=== PATIENT | female | born 1985 | race Caucasian/White ===

== ENCOUNTER → 2017-09-16 | Outpatient (CLI) | payer OTHER ==
[~2017-09-16] MED LIST: AMOXICILLIN 50500 MG; CLARITIN10 MG PO; COLACE100 MG PO; DIFLUCAN150 MG PO; DOXYCYCLINE 10100 MG PO; FLEXERIL PO; GABAPENTIN 100100 MG PO; HYDROCODONE-AP1 EAC6 PO; HYDROCODONE-APA1 TA1 PO; MEDROLDOSEPACK PO; MOBIC15 MG PO; NAPROSYN500 MG PO; NUVIGIL150 MG PO; OMEPRAZOLE40 MG PO; PERCOCET; PROAIR HFA8.5 GM INH; PROPRANOLOL 1010 MG PO; SPIRONOLACTONE100 M1 PO; VENLAFAXIN75 MG/1 T2 PO; VITAMIN B-12500 MCG PO; VITAMIN D1000 UNI1 PO; ZANAFLEX4 MG PO; ZANTAC 150MG T150 MG PO; ZOFRAN ODT4 MG PO
== END ==
LOC: M.RAD 15:13
DX: M48.07 Spinal stenosis, lumbosacral region (principal); E28.2 Polycystic ovarian syndrome; G47.419 Narcolepsy without cataplexy

== ENCOUNTER → 2017-09-23 | Outpatient (CLI) | payer OTHER | LOC: M.MRI 17:02 | DX: M51.36 Other intervertebral disc degeneration, lumbar region (principal); M51.27 Other intervertebral disc displacement, lumbosacral region ==

== ENCOUNTER → 2017-10-16 | Outpatient (CLI) | payer OTHER ==
--- NOTE | 2017-11-12 13:42 | PAINCON ---
[address] [address] PAIN MANAGEMENT CONSULTATION Name: MONY VARGAS Room: [facility] ROSHNI DcMattie#: [id number] Admission: 10/16/17 Attend Phys: Thiago Garcia MD Discharge: Date of : 81 Report #: [id number] THIS REPORT FOR: //name// CC: Sudeep Garcia DATE OF SERVICE: 10/16/2017 CHIEF COMPLAINT: Low back pain into the upper legs with radiation and sharp pain in the upper legs. HISTORY OF PRESENT ILLNESS: The patient is a 32-year-old female who has been referred to the pain clinic for evaluation. She has been experiencing pain and discomfort, which has been problematic since August of this year. It involves her upper back, posterior back, and buttocks areas with pain radiating down to the left calf. Describes it as burning and stabbing discomfort with discomfort that she rates as a 10/10 at this juncture. Notes that the pain is worse when she is standing as well as with sitting. Lying down somewhat improves her discomfort. She describes it as continuous, steady, constant, shooting, burning, stabbing, tender, and throbbing. She denies any back pain. She has tried nonsteroidal anti-inflammatory medications. She is also using Flexeril 3 times a day. She has tried tizanidine. She has used Naprosyn 500 mg t.i.d. She denies any bowel or bladder dysfunction. Pain has worsened over the last 6 weeks. Feels that it impacts significantly on all activities of daily living. 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 She has continued to have back issues since that time. ALLERGIES: No known drug allergies. MEDICATIONS: Nuvigil 150 mg daily, vitamin D 1000 units, vitamin B12 500 mcg, Flexeril 10 mg t.i.d. for spasms. Naprosyn 500 mg t.i.d., omeprazole 40 mg daily, Zanaflex 150 mg daily, spironolactone 100 mg, Zanaflex 40 mg t.i.d., and Effexor 75 mg. PAST MEDICAL HISTORY: Gallbladder disease and emotional problems. PAST SURGICAL HISTORY: Cholecystectomy in 2008, tonsillectomy in 08/2015, and nose reconstruction in 08/2015. SOCIAL HISTORY: She works as a college registrar. She is working at this juncture. REVIEW OF SYSTEMS: Questionnaire in the chart indicate generally good health. A 12-point review noted, fatigue, weakness, wears glasses, ringing in the ears, chronic sinus problems, mouth sores, shortness of breath when lying flat, [place] [address] PAIN MANAGEMENT CONSULTATION Name: MONY VARGAS Room: [facility]#: [id number] Admission: 10/16/17 Attend Phys: Thiago Garcia MD Discharge: Date of : 83 Report #: [id number] swelling of feet, ankles, hands, shortness of breath, nausea and vomiting, painful bowel movements, rectal bleeding, blood in stool, abdominal pain, cold intolerance, back pain, difficulty walking, lightheadedness, dizziness, depression. LABORATORY DATA: MRI of the lumbar spine dated 09/23/2017: 1. L3-L4 unremarkable. There is no disk bulge, protrusion, or stenosis. The facet joints are unremarkable. 2. L4-L5, loss of disk space height and signal present. 3. L5-S1 loss of disk space height and disk bulging present. Small central disk protrusion was present without significant spinal canal compression. AP diameter measurement is 13 mm. PAIN CLINIC ASSESSMENT: 1. The patient is not being treated for osteoarthritis or rheumatoid arthritis. 2. Height 5 feet 4 inches, weight 249 pounds, BMI is 43. 3. Vital signs: Blood pressure 133/87, heart rate 91, respiratory rate 16, room air saturation 97%, temperature 98.4. 4. Pain intensity is judged as 8/10. 5. Fall risk. The patient has not fallen in the last 3 months. The patient did relate that approximately 15 years ago while a cheerleader. She did fall, hurt her back and has had issues since that time. 6. Blood thinner. The patient is not on a blood thinner. 7. History of hypertension. The patient is not being treated for hypertension. 8. Opioid therapy. The patient is not on opioid therapy greater than 6 weeks. 9. Risk assessment tool. 10. Functional assessment tool. The patient's score 65/76 showing severe impact of the pain upon her activities of daily living. 11. Recreational drug use. The patient denies use of recreational drugs. 12. Use of tobacco. The patient denies use of alcoholic beverages. 13. Alcohol: The patient denies use of alcoholic beverages other than once monthly. PHYSICAL EXAMINATION: GENERAL: The patient is a well-developed, well-nourished female. Somewhat obese. She appears her stated age. She is alert and oriented x 3. Affect is appropriate. Speech is fluent. HEENT: Normocephalic, atraumatic. Extraocular eye muscles intact. Sclerae nonicteric. Mucous membranes are moist. Hearing is within normal limits. NECK: Without adenopathy, JVD or bruits. HEART: Regular rate, S1, S2. LUNGS: Clear to auscultation without rhonchi or rales. ABDOMEN: Protuberant. MUSCULOSKELETAL: Upper extremity muscle strength is judged to be a 5/5. Without significant scoliosis, lordosis, or kyphosis. Left and right lateral bending causes increased pain and discomfort in the waist [place] [address] PAIN MANAGEMENT CONSULTATION Name: MONY VARGAS Room: [facility]#: [id number] Admission: 10/16/17 Attend Phys: Thiago Garcia MD Discharge: Date of : 81 Report #: [id number] Left and right lateral rotation cause increased pain and discomfort in the back with pain radiating down to the posterior portion of her buttocks bilaterally. Forward bending to 45 degrees cause some increased pain and discomfort in low back area. Lumbar extension caused some increased low back pain and discomfort. Reflexes are +2 for the knees and ankles bilaterally. The patient has a burning and stabbing sensation in the lumbar area near the iliac crest as well as some pain and burning sensation down into the buttocks and posterior portion of her thighs bilaterally. ASSESSMENT: 1. Low back pain with pain radiating down into the upper portions of the posterior buttocks and posterior thigh. 2. Obesity. 3. Myofascial pain. 4. Gastroesophageal reflux disease. 5. Anxiety. 6. Narcolepsy. RECOMMENDATIONS: We discussed treatment options with the patient. At this juncture, we will try a conservative approach. We will have her try a Medrol Dosepak. A script for this medication has been written. We have discussed the use and reason for its use. We will also use meloxicam 15 mg 1 p.o. every day. She will note the effects of this on her stomach. Hopefully, she finds that this improved things. We may consider trigger point injection to some of the localized areas in the lower portion of her back or possibility of an epidural steroid injection to help with the pain and discomfort which she is experiencing in lower portion of her back, which radiates down the posterior portion of her legs. We would like to thank you for letting us participate in her care. We hope she continues to improve. <ELECTRONICALLY SIGNED> By: Thiago Garcia MD 11/12/17 1342 1241 0318N. Mt Garcia MD /nt
== END ==
LOC: M.PC 04:02
DX: M54.5 Low back pain (principal); M79.652 Pain in left thigh; M79.651 Pain in right thigh; M25.552 Pain in left hip; M25.551 Pain in right hip; K21.9 Gastro-esophageal reflux disease without esophagitis; G47.419 Narcolepsy without cataplexy; F41.9 Anxiety disorder, unspecified; M79.1 Myalgia; E66.9 Obesity, unspecified

== ENCOUNTER → 2017-10-28 | Outpatient (CLI) | payer OTHER ==
--- NOTE | 2017-11-12 13:59 | PAINCON ---
[address] [address] PAIN MANAGEMENT CONSULTATION Name: MONY VARGAS Room: [facility] Tricia#: [id number] Admission: 10/28/17 Attend Phys: Thiago Garcia MD Discharge: Date of : 81 Report #: [id number] THIS REPORT FOR: //name// CC: Sudeep Garcia DATE OF SERVICE: 10/28/2017 FOLLOWUP COMPLAINT: Here for an epidural steroid injection. FOLLOWUP HISTORY: The patient is a 32-year-old female who has been followed in the pain clinic because of pain and discomfort, which is radiating down into her legs. She noticed this pain, which has been problematic since August. It involves her upper back, posterior back, buttocks and has pain radiating down into her left calf. She describes it as a burning sensation, stabbing sensation, and discomfort which is risen to the level of 10/10 at times. Pain is worse when she is standing as well as she notes some discomfort with sitting. She describes it as problematic with activities, walking, sitting, standing, going from a sitting to a standing position, lifting, and bending. Denies any bowel or bladder dysfunction. Notes that the pain has continued to worsen over the last 6 weeks and has returned today for treatment. ALLERGIES: No known drug allergies. MEDICATIONS: Nuvigil 150 mg daily, vitamin D 1000 units, vitamin B12 at 500 mcg, Flexeril 10 mg t.i.d. for spasms, Naprosyn 500 mg t.i.d., omeprazole 40 mg daily, Zanaflex 150 mg daily, spironolactone 100 mg, Zanaflex 40 mg t.i.d., Effexor 75 mg. PAIN CLINIC ASSESSMENT: 1. The patient has not been treated for osteoarthritis or rheumatoid arthritis. 2. Height 5 feet 4 inches, weight 252 pounds, BMI is 43. 3. Vital signs: Blood pressure is 125/80, heart rate 96, respiratory rate 16, room air saturation 99%, temperature 98.4. 4. Pain intensity 01/09. 5. Fall risk. The patient has not fallen in the last 3 months. 6. Blood thinner. The patient is not on a blood thinning agent. 7. Hypertension. The patient is not being treated for hypertension. 8. Opioid risk greater than 6 weeks. The patient is not on an opioid therapy. 9. Functional assessment tool, the patient's score 65/76 indicating significant problems with activities of daily living secondary to the impact of pain on her life. 10. Recreational drug use. Denies use of recreational drugs. 11. Tobacco: The patient denies use of tobacco. 12. Alcohol: The patient denies use of alcoholic beverages other [place] [address] PAIN MANAGEMENT CONSULTATION Name: MONY VARGAS [id number] Admission: 10/28/17 Attend Phys: Thiago Garcia MD Discharge: Date of : 81 Report #: [id number] PHYSICAL EXAMINATION: GENERAL: The patient is a well-developed white female. She appears her stated age. She is somewhat obese. She appears to be alert and oriented x 3. Affect is appropriate. Speech is fluent. HEENT: Normocephalic, atraumatic. Extraocular eye muscles are intact. Sclerae is nonicteric. Mucous membranes are moist. Hearing is within normal limits. NECK: Without JVD, adenopathy, or bruits. HEART: Regular rate, normal S1, S2. LUNGS: Clear to auscultation without rhonchi or rales. ABDOMEN: Protuberant. MUSCULOSKELETAL: Upper extremity strength is judged to be 5/5 without significant scoliosis, kyphosis, or lordosis in the musculature. Left and right lateral bending, some increased pain and discomfort in the low back and the waist area. The patient has some pain and discomfort radiating down into the low back and into her buttocks, thighs with burning and stabbing sensation. ASSESSMENT: 1. Low back pain with pain radiating down to the upper portion and posterior portion of her buttocks and thighs. 2. Obesity. 3. Myofascial pain. 4. Gastroesophageal reflux. 5. Anxiety. 6. Narcolepsy. RECOMMENDATIONS: We discussed treatment options with the patient. We have tried a conservative approach. The patient was given a Medrol Dosepak to take in the interim. She did note some improvement in her pain, but still has pain and discomfort, which is still problematic. She has returned today and would like to proceed with an epidural steroid injection given that she is having pain, which is radiating down to her thighs, buttocks, and into her leg with burning. She states that the pain was somewhat improved with use of the Medrol Dosepak, but still is problematic. We will proceed with a lumbar epidural steroid injection. Risks and benefits of the procedure were again reviewed with the patient. They include but are not limited to infection, increased muscle soreness, headache, bleeding, worsening of pain, spinal headache, and paresis. PROCEDURE NOTE: The patient was assisted in getting on the fluoroscopy table. She was placed in the prone position. Her back was sterilely prepped with a Betadine solution. Fluoroscopy was used to identify the L4-L5 interspace. This area had been sterilely prepped with Betadine and infiltrated with 0.25% bupivacaine. Total of 80 mg Depo-Medrol, 40 mg triamcinolone and 2 mL of 0.25% bupivacaine was injected. The patient tolerated the procedure well. She did get a little bit hot and felt like she was going to be nauseated, but did not. The bed was then placed in more of a [place] [address] PAIN MANAGEMENT CONSULTATION Name: MONY VARGAS Room: [facility]#: [id number] Admission: 10/28/17 Attend Phys: Thiago Garcia MD Discharge: Date of : 81 Report #: [id number] wellbeing quickly returned. She then was taken to the recovery room. A Band-Aid was placed in the area of the injection. Anterior, posterior as well as lateral viewing was used to identify the appropriate placement. She remained in the pain clinic for an appropriate amount of time. She will follow up in the future as needed. She will take meloxicam and continue to note its effect on her GI tract. We would like to thank you for letting us participate in her care. We hope she continues to improve. <ELECTRONICALLY SIGNED> By: Thiago Garcia MD 11/12/17 1359 1550 2129N. Mt Garcia MD /[place]
== END | disposition home or self-care (01) ==
LOC: M.PC 00:10
DX: M54.16 Radiculopathy, lumbar region (principal); M79.1 Myalgia; K21.9 Gastro-esophageal reflux disease without esophagitis; G47.419 Narcolepsy without cataplexy; F41.9 Anxiety disorder, unspecified; E66.09 Other obesity due to excess calories; Z68.41 Body mass index [BMI] 40.0-44.9, adult; Z79.899 Other long term (current) drug therapy; Z98.890 Other specified postprocedural states

== ENCOUNTER 2017-11-13 16:27 | Emergency (ER) | payer OTHER ==
[~2017-11-13] VITALS: Ht 162.6 cm; Wt 113.4 kg
[~2017-11-13 16:27] MED LIST changes: -GABAPENTIN 100100 MG PO; -PROAIR HFA8.5 GM INH; -PROPRANOLOL 1010 MG PO
[2017-11-13 17:40] LABS: ABSOLUTE BASOPHILS 0.1 thou/uL (0.0-0.2); ABSOLUTE EOSINOPHILS 0.2 thou/uL (0.0-0.7); ABSOLUTE LYMPHOCYTES 3.2 thou/uL (0.8-5.3); ABSOLUTE MONOCYTES 0.9 thou/uL (0.0-1.2); ABSOLUTE NEUTROPHILS 10.5 thou/uL (1.6-8.1); BASOPHILS 0.5 %; EOSINOPHILS 1.6 %; HEMATOCRIT 42.9 % (37.0-47.0); HEMOGLOBIN 14.6 gm/dL (12.0-15.0); LYMPHOCYTES 21.2 %; MCH 30.5 pg (26.0-34.0); MCHC 34.1 g/dL (28.0-37.0); MCV 89.5 fL (80.0-100.0); MPV 7.6 fl. (7.2-11.1); NUCLEATED RBCS 0 /100WBC; PLATELET COUNT* 449 thou/uL (150-400); POLYS 70.7 %; RBC 4.79 mil/uL (4.20-5.00); RDW-CV 12.7 % (10.5-14.5); WBC 14.9 thou/uL (4.0-11.0)
[2017-11-13 17:43] LABS: ANION GAP 9 mmol/L (7-16); BUN 17 mg/dL (7-18); CALCIUM 9.3 mg/dL (8.5-10.1); CHLORIDE 100 mmol/L (98-107); CO2 27 mmol/L (21-32); CREATININE 0.9 mg/dL (0.6-1.3); GLUCOSE 97 mg/dL (70-99); POTASSIUM 3.6 mmol/L (3.5-5.1); SODIUM 136 mmol/L (136-145)
[2017-11-13 17:50] LABS: ALBUMIN 3.9 g/dL (3.4-5.0); ALKALINE PHOSPHATASE 59 U/L (46-116); SGOT 17 U/L (15-37); SGPT 30 U/L (30-65); TOTAL BILIRUBIN 0.4 mg/dL (<0.1-1.0); TOTAL PROTEIN 8.2 g/dL (6.4-8.2); TROPONIN-I LEVEL <0.06 ng/mL (<0.06)
[2017-11-13] MEDS ORDERED: PROAIR HFA8.5 GM INH (19:13)
[2017-11-13 19:24] VITALS: BP 130/74
--- NOTE | 2017-11-14 12:05 | EKG ---
[place] [address] ELECTROCARDIOGRAM REPORT Name: MONY VARGAS [id number] Admission: 11/13/17 Attend Phys: Discharge: 11/13/17 Date of : 81 Report #: [id number] THIS REPORT FOR: //name// [facility] ED Test Date: 2017-11-13 Test Time: 18:05:28 Pat Name: MONY VARGAS Department: Room: Gender: F Telephonic Nurse Case Manager: : 1985 Requested By: Eloisa Morrow Order Number: [id number] MD: Sudeep Breen Measurements Intervals Maceo Rate: 112 P: 27 NV: 125 QRS: 28 QRSD: 89 T: 0 QT: 339 QTc: 463 Interpretive Statements Sinus tachycardia poor r wave progression Low voltage, precordial leads No previous ECG available for comparison Electronically Signed On 11-14-2017 12:05:21 CDT by Sudeep Breen [email or web address] <ELECTRONICALLY SIGNED> By: Sudeep Breen MD, [facility] 11/14/17 1205 1805 1805 Sudeep Breen MD, FACC /EPI
[2017-11-27] MEDS ORDERED: GABAPENTIN 100100 MG PO (09:03)
[2017-11-27] MEDS ORDERED: PROPRANOLOL 1010 MG PO (09:37)
[2017-12-25] MEDS ORDERED: MEDROLDOSEPACK PO (11:32)
[2017-12-25] MEDS ORDERED: MOBIC15 MG PO (11:32)
[2017-12-25] MEDS ORDERED: PROPRANOLOL 1010 MG PO (11:32)
== END 2017-11-13 19:24 | disposition home or self-care (01) ==
LOC: M.ERS 16:27
PROVIDERS: Nurse Practitioner Family
DX: R06.00 Dyspnea, unspecified (principal); R06.02 Shortness of breath; K21.9 Gastro-esophageal reflux disease without esophagitis; F41.9 Anxiety disorder, unspecified; Z90.49 Acquired absence of other specified parts of digestive tract

== ENCOUNTER → 2017-11-27 | Outpatient (CLI) | payer OTHER ==
[~2017-11-27] MED LIST changes: +GABAPENTIN 100100 MG PO; +PROAIR HFA8.5 GM INH; +PROPRANOLOL 1010 MG PO
--- NOTE | 2017-11-27 15:18 | PAINCON ---
[address] [address] PAIN MANAGEMENT CONSULTATION Name: MONY VARGAS Room: [facility] Tricia#: [id number] Admission: 11/27/17 Attend Phys: Thiago Garcia MD Discharge: Date of : 81 Report #: [id number] THIS REPORT FOR: //name// CC: Sudeep Garcia DATE OF SERVICE: 11/27/2017 FOLLOWUP COMPLAINT: Here for another epidural injection. FOLLOWUP HISTORY: The patient is a 32-year-old female who has been followed in the pain clinic because of pain and discomfort. She has been experiencing pain which is radiating down into her legs. She underwent an epidural steroid injection at the last visit. She noticed that her pain is about 70% better. She did note that her heart rate seemed to be elevated for about a week. Denies any similar problems like this in the past. Has no problems with her heart. She has had no heart conditions. Does take Nuvigil for narcolepsy type symptoms. She feels that the Meloxicam is working reasonably well. Has had no problem with the gabapentin. Rates her pain as a 1/10 at this juncture. She is still having some pain and discomfort with pain down into her legs bilaterally to the level of her knee. She feels that another injection would be helpful. She is contemplating going on ocean cruise. She would like to undergo another injection to lessen the chance that trip will be problematic. She denies any problems with her stomach as a result of the Meloxicam. Notes that her pain is exacerbated somewhat with activity, but overall things are going better. ALLERGIES: No known drug allergies. CURRENT MEDICATIONS: Nuvigil 150 mg daily, vitamin D 1000 units, vitamin B12 at 500 mcg, Flexeril 10 mg t.i.d. for spasms, Naprosyn has been changed and Meloxicam instituted 15 mg 1 p.o. daily, omeprazole 40 mg daily, Zanaflex 150 mg daily, spironolactone 100 mg, Zanaflex 4 mg p.o. t.i.d., Effexor 75 mg. PAIN CLINIC ASSESSMENT: 1. The patient has not been treated for osteoarthritis or rheumatoid arthritis. 2. Height 5 feet 4 inches, weight 253 pounds, BMI is 43.7. 3. Vital signs: Blood pressure is 144/87, heart rate 97, respiratory rate 16, room air saturation is 96 and temperature 98.3. 4. Pain intensity down from 8 to 1, but still episodic. 5. Fall risk. The patient has not fallen in the last 3 months. 6. Blood thinner. The patient is not on a blood thinning medication. 7. Hypertension. The patient has not been treated for hypertension. 8. Opioids risk. The patient is not on opioid medications. 9. Functional assessment tool. The patient's score 65/76 which indicated significant problems with her activities of daily living, which is improved now since [place] [address] PAIN MANAGEMENT CONSULTATION Name: MONY VARGAS [id number] Admission: 11/27/17 Attend Phys: Thiago Garcia MD Discharge: Date of : 81 Report #: [id number] 10. Recreational drug use. The patient denies use of recreational drugs. 11. Tobacco: The patient denies use of tobacco. 12. Alcohol: The patient denies use of alcoholic beverages other than a monthly basis. PHYSICAL EXAMINATION: GENERAL: The patient is a well-developed white female. Somewhat obese. She appears her stated age. She is alert and oriented x 3. Affect is appropriate. Speech is fluent. HEAD, EYES, EARS, NOSE, AND THROAT: Normocephalic, atraumatic. Extraocular eye muscles intact. Sclerae nonicteric. Mucous membranes moist. Hearing is within normal limits. NECK: Without JVD, adenopathy, or bruits. HEART: Regular rate, normal S1, S2. LUNGS: Clear to auscultation without rhonchi or rales. ABDOMEN: Protuberant. MUSCULOSKELETAL: Without significant scoliosis, kyphosis or lordosis. The patient has pain and discomfort in the left as well as the right leg with pain radiating down to the L4-L5 distribution. Has noted less pain in the buttocks, less burning, less stabbing sensation since the last visit. ASSESSMENT: 1. Low back pain with pain radiating down to the lower portions of her buttocks and thigh, improved after epidural steroid injection. 2. Obesity. 3. Myofascial pain. 4. Gastroesophageal reflux. 5. Anxiety. 6. Narcolepsy. 7. Elevated heart rate to 106 for about a week. The patient's baseline heart rate 97. RECOMMENDATIONS: We discussed treatment options with the patient. We will proceed today with another epidural steroid injection. Risks and benefits of the procedure were again reviewed. They include but are not limited to infection, increased muscle soreness, headache, bleeding, worsening of pain, paralysis, spinal headache. The patient elects to proceed. PROCEDURE NOTE: The patient was taken to the procedure area. She was assisted in getting on the table. Her back was sterilely prepped. Fluoroscopy using anterior, posterior as well as lateral viewing were used to identify the L5/L4 area. This area was sterilely prepped. 0.25% bupivacaine was injected. A midline approach using a 17-gauge Tuohy 5 inch needle was provided. A total of 80 mg Depo-Medrol, 40 mg of triamcinolone and 2 mL of 0.25% bupivacaine was injected. The patient tolerated the procedure well. There were no complications. She remained in the [place] [address] PAIN MANAGEMENT CONSULTATION Name: MONY VARGAS Room: [facility]#: [id number] Admission: 11/27/17 Attend Phys: Thiago Garcia MD Discharge: Date of : 81 Report #: [id number] time. The patient has been given a script for 10 Inderal to take should she have an elevated heart rate. She states that she has no pulmonary problems, no heart problems. Hopefully, if she had an elevated heart rate this would be helpful. We would like to thank you for letting us to participate in her care. We hope she continues to improve. <ELECTRONICALLY SIGNED> By: Thiago Garcia MD 11/27/17 1518 0935 1000N. Mt Garcia MD /[facility]
== END | disposition home or self-care (01) ==
LOC: M.PC 03:25
DX: M54.16 Radiculopathy, lumbar region (principal); G89.29 Other chronic pain; M79.1 Myalgia; K21.9 Gastro-esophageal reflux disease without esophagitis; F41.9 Anxiety disorder, unspecified; G47.419 Narcolepsy without cataplexy; E66.09 Other obesity due to excess calories; Z79.899 Other long term (current) drug therapy; Z87.19 Personal history of other diseases of the digestive system; Z98.890 Other specified postprocedural states

== ENCOUNTER → 2017-12-25 | Outpatient (CLI) | payer OTHER ==
--- NOTE | 2017-12-31 14:16 | PAINCON ---
[facility] [address] [place] [address] PAIN MANAGEMENT CONSULTATION Name: MONY VARGAS Room: [facility] ROSHNI MoraAaron#: [id number] Admission: 12/25/17 Attend Phys: Thiago Garcia MD Discharge: Date of : 81 Report #: [id number] THIS REPORT FOR: //name// CC: Sudeep Garcia DATE OF SERVICE: 12/25/2017 PRIMARY CARE PHYSICIAN: Sudeep Lucas MD FOLLOWUP COMPLAINT: Low back pain. I got about 75% relief after the last injection in October. FOLLOWUP HISTORY: The patient is a 32-year-old female who has been seen in the pain clinic because of pain and discomfort, which has been radiating down into her legs. She has undergone epidural steroid injections on 2 occasions. She has noted significant improvement in her pain. She has returned from a cruise. She was on vacation. After driving home, she noted some worsening of pain and discomfort. It involves her low back area and feels like it is returning. Pain is radiating down into her buttocks. It involves her legs bilaterally. She has come to the pain clinic for evaluation and the possibility of either medications or another injection. She has had no complication from the past injection. ALLERGIES: No known drug allergies. CURRENT MEDICATIONS: Nuvigil 150 mg daily, vitamin D 1000 units, vitamin B12 500 mcg, Flexeril 10 mg t.i.d., Naprosyn was used and the patient is now using meloxicam. omeprazole 40 mg, spironolactone 100 mg, Zanaflex 150, 4 mg p.o. t.i.d., Effexor 75 mg. PAIN CLINIC ASSESSMENT: 1. The patient is not being treated for osteoarthritis or rheumatoid arthritis. 2. Height 5 feet 4 inches, weight 256 pounds, BMI is 43. 3. Vital signs: Blood pressure 141/82, pulse 91, respiratory rate 16, room air saturation 96%, temperature 97.9. 4. Pain intensity 09/09. 5. Fall risk. The patient has not fallen in the last 3 months. 6. Blood thinner. The patient is not on a blood thinning medication. 7. Hypertension. The patient is not being treated for hypertension. 8. Opioid risk. The patient is not on opioid medications. 9. Functional assessment tool. Score is 65/70. 10. Recreational drug use. The patient denies use of recreational drugs. 11. Tobacco: The patient denies use of tobacco. 12. Alcohol: The patient denies use of alcoholic beverages other [place] [address] PAIN MANAGEMENT CONSULTATION Name: MONY VARGAS [id number] Admission: 12/25/17 Attend Phys: Thiago Garcia MD Discharge: Date of : 81 Report #: [id number] PHYSICAL EXAMINATION: GENERAL: The patient is a well-developed, well-nourished, white female. Slightly obese. She appears her stated age. She is alert and oriented x 3. Her affect is appropriate. Speech is fluent. HEENT: Normocephalic, atraumatic. Extraocular eye muscles intact. Sclerae nonicteric. Mucous membranes are moist. Hearing is within normal limits. NECK: Without JVD, adenopathy, or bruits. HEART: Regular rate, normal S1, S2. LUNGS: Clear to auscultation without rhonchi or rales. ABDOMEN: Protuberant without organomegaly. MUSCULOSKELETAL: Without significant scoliosis, kyphosis or lordosis. The patient has pain and discomfort in the lower portion of her back, which radiates down into her legs in the L4-L5 distribution. Muscle strength is still judged to be 5/5. ASSESSMENT: 1. Low back pain with pain radiating down into the lower portion of the buttocks and thigh improved with epidural steroid injections in the past. 2. Obesity. 3. Myofascial pain. 4. Gastroesophageal reflux. 5. Anxiety. 6. Narcolepsy. 7. Elevated heart rate to 106 for about a week after steroid dosing. RECOMMENDATIONS: We discussed treatment options with the patient. At this juncture, she feels that things are going reasonably well. She realizes a limited number of epidural steroid injection she has get in, in this period of time. At this juncture, she will try a more conservative approach. She will continue with Meloxicam, cyclobenzaprine and gabapentin. She would like to have these medications renewed. A script for meloxicam 15 mg 1 p.o. daily, propranolol 10 mg p.r.n., Medrol Dosepak to be taken as directed. She will call us if she has any problems with her medications. We would like to thank you for letting us participate in her care. Hopefully, she continues to note improvement with this more conservative regimen. If her pain persists, she will return to the pain clinic at which time she will then undergo another epidural steroid injection. <ELECTRONICALLY SIGNED> By: Thiago Garcia MD 12/31/17 [id number]. Mt Garcia MD /PMT
== END ==
LOC: M.PC 03:26
DX: M54.5 Low back pain (principal); E66.9 Obesity, unspecified; K21.9 Gastro-esophageal reflux disease without esophagitis; F41.9 Anxiety disorder, unspecified; G47.419 Narcolepsy without cataplexy